=== PATIENT | male | born 1970 | race Caucasian/White ===

== ENCOUNTER 2018-10-02 13:10 | Day surgery (SDC) | payer BC, SELFPAY ==
--- NOTE | 2018-10-02 | PATH_ITS ---
[facility] Accession Number: [id number] . 01 Material submitted: . colon - LEFT COLON AND PROXIMAL RECTAL POLYPS X2 . 02 Diagnosis: Left Colon, Proximal Rectum, Polyps x2, Biopsies: Tubular adenoma in two of nine fragments. Hyperplastic polyp in five fragments. V/10/04/2018 . 02 Electronically signed: . Kathryn Russell MD, Pathologist NPI- [id number] . 01 Gross description: . LEFT COLON AND PROXIMAL RECTAL POLYPS X2: Received in formalin are 1 fragment(s) of donaldson, soft tissue measuring 0.1 x 0.1 x 0.1 cm to 0.3 x 0.2 x 0.2 cm which is entirely submitted and submitted entirely in 1 cassette(s) /DMC /DM . 02 Pathologist provided ICD-10: D12.6 . 02 CPT . 405627 Performed at: 01 [facility] [address] [facility], [place], [place] [id number] MD Luis Real MD Phone: [phone] Performed at: 02 [facility] [address] [place], [place] [id number] MD Kathryn Russell MD Phone: [phone]
[2018-10-02 13:32] VITALS: BP 151/89; PULSE 97; RESP 16; TEMP 36.7; O2SAT 100; BMI 23.7
[2018-10-02] MEDS: SODIUM CHLORIDE 0.9% 1,000 ML 200 ML IV (13:46)
--- NOTE | 2018-10-02 13:57 | PM.HP.1 ---
History of Present Illness Date Patient Seen: 10/02/18 Time Patient Seen: 13:57 Chief complaint: [id number] Narrative: Patient seen and examined healthy unchanged from note 09/05/2017 Plan for screening colonoscopy today Risks benefits including bleeding, perforation, hypoxia, missed lesion all discussed Patient ready to proceed Patient History Medical History (Updated 10/16/17 @ 16:59 by Mark Singh MD) Anxiety (Chronic 07/24/14) Depression (Resolved) Back pain (Resolved) Chronic back pain (Chronic) Surgical History (Updated 09/05/18 @ 15:52 by Mirza Murphy MD) No pertinent past surgical history (Acute) Family History (Updated 09/05/18 @ 10:10 by Florence Carrera LPN) Father Hypertension Heart disease, hypertensive Grandfather Cancer Social History (Updated 09/05/18 @ 10:11 by Florence Carrera LPN) marital status: household members: spouse occupational status: employed Smoking Status: Current every day smoker alcohol intake: current Family & Social History Family History (Updated 09/05/18 @ 10:10 by Florence Carrera LPN) Father Hypertension Heart disease, hypertensive Grandfather Cancer Social History: household members spouse Tobacco & Substance use: Smoking Status Current every day smoker alcohol intake current Meds Home Medications Medication Instructions Recorded Confirmed Type alprazolam 0.25 mg tablet 0.25 mg PO ONCE PRN tab 10/16/17 09/05/18 History Allergies Allergy/AdvReac Type Severity Reaction Status Date / Time codeine [CODEINE] AdvReac Intermediate N/V Verified 09/05/18 10:10 Exam Vital Signs (past 8 hours): - 10/02/18 13:32 Temperature 98.1 F Pulse Rate 97 H Respiratory Rate 16 Blood Pressure 151/89 H Pulse Oximetry 100 Oxygen Delivery Method Room Air
[2018-10-02] MEDS: SODIUM CHLORIDE 0.9% 1,000 ML 42 ML IV (14:44)
[2018-10-02] MEDS: MIDAZOLAM 5 MG/5 ML VIAL IV (14:45)
[2018-10-02] MEDS: fentaNYL 250 MCG/5 ML INJ IV (14:45)
--- NOTE | 2018-10-02 15:10 | PM.OP.ENDO ---
Operative Date/Time/Diagnoses Date of procedure: 10/02/18 Time of procedure: 15:10 Pre-op diagnosis: rectal bleeding Post-op diagnosis: same (+ polyps) Procedure & Clinicians Study performed: Screening colonoscopy-complete Same procedure as scheduled: Yes Indications: 47-year-old man presents to clinic with rectal bleeding -never had colonoscopy Surgeon: Mirza Murphy Procedure Notes SCOAP/Timeout: completed Procedure in detail: Patient taken into the endoscopy suite, time-out completed. He was sedated with midazolam and fentanyl. A digital rectal exam was performed he had a normal size prostate, his enlarged right-sided hemorrhoidal column was palpable. No palpable masses or nodules. 160 cm colonoscope was then advanced through the anus. He had a tortuous sigmoid colon which was eventually able to be negotiated through. He also had a fairly redundant transverse colon and the tight hepatic flexure making the of above-average difficulty. The cecum was reached with visualization of the appendiceal orifice the IC valve as well as the crows foot. The scope was then slowly withdrawn with the scope withdrawal time of 28 minutes. The folds of the mucosa were carefully inspected. There was still some residual stool that required irrigation but overall the prep was adequate. A total of 3 small sessile polyps were identified 1 in the left colon and 2 quite close to each other in the proximal rectum -these were biopsied with cold forceps. Unfortunately the left colon polyp and the 2 rectal polyps were combined within a single specimen jar erroneously. The morphology was too similar to allow for separation. The colonoscope was retroflexed in the distal colon -no additional lesions identified Due to the patient's significant alcohol history as well as benzodiazepine use a large amount of procedural sedation medication was required as below. Totals: Midazolam 13 mg Fentanyl 250 mcg Scope withdrawal time: Twenty-eight Sedation minutes: 60 Findings: diverticulosis Specimen(s): other (Proximal rectum and left colon polyps) Complications: none Impression: 1) Sigmoid diverticulosis 2) L colon small sesile polyp x 1 s/p cold biopsy 3) Proximal rectal polyps x 2 s/p cold biopsy 4) enlarged right likely anterior hemorrhoidal column Recommendations: Colonscopy in 3 years Plan for aftercare: follow up in clinic Follow up: weeks Disposition: PACU
[2018-10-02 15:12] VITALS: BP 103/73; PULSE 75; RESP 15; TEMP 36.6; O2SAT 100
[2018-10-02 15:19] VITALS: BP 111/75; PULSE 74; RESP 10; O2SAT 99
[2018-10-02 15:22] VITALS: BP 121/60; PULSE 88; RESP 17; O2SAT 100
--- NOTE | 2018-10-02 15:23 | SUR.PHASEI ---
HOB elevated, juice given. Patient talkative, oriented. resp unlabored, Skin warm and dry. VSS.
--- NOTE | 2018-10-02 15:29 | SUR.PHASEI ---
1526 to OPD, bed down and locked, Report given. Pt. awake, oriented, talkative. Denies pain/nausea. Tolerating PO well. Stable
[2018-10-02 15:47] VITALS: BP 124/75; PULSE 76; RESP 17; TEMP 36.2; O2SAT 100
== END 2018-10-02 15:54 | disposition home or self-care (01) ==
PROVIDERS: PCP Internal Medicine; Visit Provider Surgery
PROC: 0DJD8ZZ Inspection of Lower Intestinal Tract, Via Natural or Artificial Opening Endoscopic (ICD-10-PCS; CPT 45378; principal; 2018-10-02 14:30)
DX: K62.5 Hemorrhage of anus and rectum (principal); K57.30 Diverticulosis of large intestine without perforation or abscess without bleeding; K64.8 Other hemorrhoids; F17.210 Nicotine dependence, cigarettes, uncomplicated; D12.6 Benign neoplasm of colon, unspecified
CPT/HCPCS: 45380; 99152; 99153; J2250; J3010

== ENCOUNTER → 2023-05-24 15:44 | Outpatient (CLI) | payer OTHER, SELFPAY ==
--- NOTE | 2023-05-24 | DI.MRI.S_ITS ---
PROCEDURE: MR CERVICAL SPINE WO CON INDICATIONS: CERVICAL DISC DISORDER TECHNIQUE: Noncontrast sagittal T1 spin echo and T2 fast spin echo, sagittal STIR, foraminal oblique sagittal T2 fast spin echo, and axial gradient echo or T2 fast spin echo through the cervical spine. COMPARISON: [facility], , C-SPINE WITHOUT CONTRAST, 12/05/2014, 14:23. FINDINGS: Image quality: Diagnostic Alignment: There is straightening of normal cervical lordosis. No spondylolisthesis. Marrow: No acute fracture. Multilevel disc space height loss and desiccation. Suspected areas of focal fatty marrow or hemangiomas are present. There is also scattered Modic changes. Diffuse low signal on T1 weighted images is nonspecific, sometimes seen with smoking or anemia or other hematologic disorder for example. Cord: There may be minimal myelopathic cord signal at C5-C6. Soft tissues: No acute or suspicious soft tissue abnormality. Prevertebral soft tissues are normal thickness. Specific levels: C2-C3: No stenosis. C3-C4: Posterior disc osteophyte complex and central protrusion. Uncovertebral and facet arthropathy. [id number] central narrowing. C4-C5: Posterior disc osteophyte complex. Central protrusion indenting the ventral cord. Moderate to severe central narrowing. Moderate to severe bilateral neural foraminal narrowing. Uncovertebral and facet arthropathy. Ligamentum hypertrophy. C5-C6: Severe central narrowing. Ligamentum hypertrophy. Uncovertebral and facet arthropathy. Moderate to severe bilateral neural foraminal narrowing. C6-C7: Uncovertebral and facet arthropathy. Posterior disc osteophyte complex and central protrusion. Moderate central narrowing. Moderate to severe bilateral neural foraminal narrowing. C7-T1: No stenosis. IMPRESSION: Advanced degenerative changes, mostly due to disc disease, with superimposed ligamentum hypertrophy and arthropathy. Areas of stenosis as described above. Overall findings are slightly progressed compared to 2014. Possible minimal myelopathic cord signal at C5-C6. Other findings as above. Dictated by: Gabriele Grant M.D. on 05/24/2023 at 16:52 Approved by: Gabriele Grant M.D. on 05/24/2023 at 16:59
== END ==
LOC: MRI 15:47
PROVIDERS: PCP Internal Medicine; Referring Provider Chiropractor; Visit Provider Chiropractor
DX: M50.122 Cervical disc disorder at C5-C6 level with radiculopathy (principal); M47.22 Other spondylosis with radiculopathy, cervical region; M48.02 Spinal stenosis, cervical region
CPT/HCPCS: 72141

== ENCOUNTER → 2023-06-21 07:53 | Outpatient (CLI) | payer BC, SELFPAY ==
--- NOTE | 2023-06-21 07:56 | DI.US.S_ITS ---
PROCEDURE: US ABDOMEN LIMITED INDICATIONS: Left inguinal pain and swelling TECHNIQUE: Real-time focused scanning was performed of the inguinal region of interest, with image documentation. COMPARISON: None. FINDINGS/ IMPRESSION: Limited ultrasound of the area of concern in the left inguinal region shows a reducible bowel and fat containing umbilical hernia. If indicated, CT may provide additional diagnostic benefit. Dictated by: Michael Ballard M.D. on 06/21/2023 at 9:41 Approved by: Michael Ballard M.D. on 06/21/2023 at 9:43
== END ==
LOC: US 07:55
PROVIDERS: PCP Family Medicine; Referring Provider Family Medicine; Visit Provider Family Medicine
DX: K40.90 Unilateral inguinal hernia, without obstruction or gangrene, not specified as recurrent (principal)
CPT/HCPCS: 76705

== ENCOUNTER → 2023-06-24 08:29 | Outpatient (CLI) | payer BC, SELFPAY ==
[2023-06-24 09:19] LABS: Add Manual Diff / Slide Review NO; Basophils Absolute Auto 100 /uL (0-100); Basophils Percent Auto 1.2 % (0-2); Eosinophils Absolute Auto 200 /uL (0-450); Eosinophils Percent Auto 3.8 % (2-4); Hematocrit 39.3 % (41-53); Hemoglobin 13.2 g/dL (13.5-17.5); Lymphocytes Absolute Auto 1900 /uL (1100-4500); Lymphocytes Percent Auto 35.6 % (25-40); Mean Corpuscular HGB Conc 33.6 % (30-36); Mean Corpuscular Hemoglobin 32.9 PG (26-34); Monocytes Absolute Auto 500 /uL (0-900); Monocytes Percent Auto 9.6 % (3-14); Neutrophils Absolute Auto 2700 /uL (1500-7000); Neutrophils Percent Auto 49.8 % (50-75); Platelet Count 498 X10^3/uL (150-400); Red Blood Cell Count 4.01 X10^6/uL (4.5-5.9); White Blood Cell Count 5.4 X10^3/uL (4.5-11.0)
[2023-06-24 09:37] LABS: Alanine Aminotransferase 45 IU/L (<50); Albumin 4.2 g/dL (3.5-5.0); Albumin Globulin Ratio 1.2 (1.0-2.8); Alkaline Phosphatase 76 U/L (38-126); Aspartate Aminotransferase 55 IU/L (17-59); BUN Creatinine Ratio 15.8 (6-22); Bilirubin Total 0.5 mg/dL (0.2-1.3); Blood Urea Nitrogen 9 mg/dL (9-20); Calcium 9.4 mg/dL (8.4-10.2); Carbon Dioxide 31 mmol/L (22-32); Chloride 104 mmol/L (98-107); Cholesterol 207 mg/dL (140-199); Estimated Glomerular Filt Rate > 60 mL/min (>60); Globulin 3.6 g/dL (1.7-4.1); Glucose 85 mg/dL (70-100); HDL Cholesterol 83 mg/dL (40-60); HEMOLYSIS < 15 (0-50); LDL Cholesterol Calculated 85 mg/dL (<100); Potassium 4.4 mmol/L (3.4-5.1); Sodium 142 mmol/L (137-145); Total Protein 7.8 g/dL (6.3-8.2); Triglycerides 197 mg/dL (35-150)
== END ==
PROVIDERS: PCP Family Medicine; Referring Provider Family Medicine; Visit Provider Family Medicine
DX: Z00.00 Encounter for general adult medical examination without abnormal findings (principal); F10.10 Alcohol abuse, uncomplicated; F32.9 Major depressive disorder, single episode, unspecified; Z13.220 Encounter for screening for lipoid disorders
CPT/HCPCS: 80053; 80061; 83036; 85025

== ENCOUNTER 2023-09-12 06:29 | Day surgery (SDC) | payer OTHER, SELFPAY ==
[2023-09-07 09:39] VITALS: BMI 22.5
[2023-09-12] VITALS (8 sets, daily range): BP systolic 111–143; BP diastolic 66–92; PULSE 82–108; RESP 12–17; TEMP 36.4–36.8; O2SAT 93–100; BMI 22.5
[2023-09-12] MEDS: ACETAMINOPHEN 325 MG TABLET 975 MG PO (07:05)
[2023-09-12] MEDS: LACTATED RINGERS 1,000 ML 42 ML IV ×2 (07:06→09:14)
--- NOTE | 2023-09-12 07:40 | PM.HP.1 ---
History of Present Illness History of Present Illness Date Patient Seen: 09/12/23 Time Patient Seen: 07:40 Chief complaint: Left Laparoscopic Inguinal Hernia Repair Narrative: Goevany is a 52-year-old man with a left hernia. See office note from June for details. [facility] Medical History (Updated 09/07/23 @ 09:53 by Selin Rick RN) History of chest pain Headache, migraine Pneumonia Emphysema of lung Bipolar disorder Tinnitus (~2003) Neck pain Headache Sinus drainage Depression Back pain Anxiety (07/24/14) Surgical History Anesthesia [facility] teeth removed (~2007) Hand laceration (~2003) History of colonoscopy with polypectomy No pertinent past surgical history Family History Father Hypertension Heart disease, hypertensive Grandfather Cancer Social History marital status: household members: friend(s) occupational status: employed Smoking Status: Former smoker alcohol intake: current Meds Home Medications and Allergies Home Medications Medication Instructions Recorded Confirmed Type ibuprofen 400 mg tablet 400 mg PO Q8H PRN Pain (Scale 09/12/23 09/12/23 History Score 4-6) Allergies Allergy/AdvReac Type Severity Reaction Status Date / Time codeine [CODEINE] Allergy Intermediate Rash Verified 09/12/23 06:57 hydrocodone AdvReac Intermediate Nausea Verified 09/12/23 07:04 Exam Vital Signs (past 8 hours): - 09/12/23 07:23 Temperature 98.3 F Pulse Rate 98 H Respiratory Rate 17 Blood Pressure 143/92 H Pulse Oximetry 100 Oxygen Delivery Method Room Air Oxygen Delivery Method Room Air Const General: healthy appearing Other: Left inguinal hernia Assessment & Plan Assessment and plan (1) Left inguinal hernia: Status: Acute Plan We will proceed with a laparoscopic left inguinal hernia repair with mesh.
[2023-09-12] MEDS: CEFAZOLIN 2 GM/100 ML PREMIX 100 ML IV (08:00)
[2023-09-12] MEDS: BUPIVACAINE 0.5% W/ EPI (PF) 30 ML VIAL INJ (08:35)
--- NOTE | 2023-09-12 09:29 | PM.OP.1 ---
Operative Date/Time/Diagnoses Date of procedure: 09/12/23 Time of procedure: 09:29 Pre-op diagnosis: Left inguinal hernia Post-op diagnosis: same Procedure & Clinicians Procedure: Laparoscopic left inguinal hernia repair with mesh Same procedure as scheduled: Yes Surgeon: Scott Median Tool Grinder Operator: Ben Velasquez Anesthesia Type: General Operative Notes Procedure in detail: The patient was given preoperative antibiotics. The patient was brought to the operating room, placed on the table in the supine position with the arms tucked and general anesthesia was induced. The abdomen was prepped and draped in the usual fashion. A time-out was performed. A 1 cm infraumbilical incision was created and dissection was carried down to the umbilical hernia. The base of the umbilical stalk was transected revealing a 7 mm fascial defect. The fascial defect was extended in the left lateral direction to create a 1 cm defect. The Peewee port was placed and the abdomen was insufflated to 15 mmHg. The camera was inserted, there was no evidence of any injury from the entry. There was a large indirect left inguinal hernia containing portion of the sigmoid colon. 5 mm ports were placed under direct vision in the mid left and mid right abdomen. The patient was positioned in Trendelenburg. The sigmoid colon was easily reduced from the hernia. We created left peritoneal flap. The peritoneum was dissected off the cord structures and the Brenden's ligament was exposed. The indirect sac was dissected out of the hernia defect and allowed to flop down into abdomen. A large left Bard mesh was brought in and placed over the defect with the medial edge against Brenden's ligament. We then closed the peritoneal flap with a running 3-0 barbed suture. We took one last look around the abdomen and saw no other abnormalities. The suture was removed and accounted for. The 5 mm ports were removed under direct vision. The abdomen was desufflated. The Peewee port was removed. Additional local was injected into the fascia and the fascial incision was closed with 2 interrupted 0 Vicryl sutures. The skin incisions were closed with 4 Monocryl, Steri-Strips and Band-Aids. EBL: 10 mL Ben QUIÑONEZ provided assistance with exposure, retraction and closure of incisions. Post-operative Condition: stable Disposition: PACU
[2023-09-12] MEDS: OXYCODONE IR 5 MG TABLET PO (10:20)
== END 2023-09-12 10:35 | disposition home or self-care (01) ==
PROVIDERS: PCP Family Medicine; Referring Provider Surgery; Visit Provider Surgery
PROC: 0YQ64ZZ Repair Left Inguinal Region, Percutaneous Endoscopic Approach (ICD-10-PCS; CPT 49650; principal; 2023-09-12 07:45)
DX: K40.90 Unilateral inguinal hernia, without obstruction or gangrene, not specified as recurrent (principal)
CPT/HCPCS: 49650; J0690; J1100; J1885; J2250; J2405; J2704; J3010